=== PATIENT | female | born 1990 | race African-American/Black ===

== ENCOUNTER 2020-01-22 03:55 | Emergency (ER) | payer SELFPAY ==
[~2020-01-22] VITALS: Ht 154.9 cm; Wt 75.6 kg
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
[2020-01-22 05:00] LABS: BACTERIA,URINE 0 /HPF (0-FEW); BILIRUBIN,URINE NEG (NEG); CLARITY,URINE CLEAR; COLOR,URINE YELLOW; GLUCOSE,URINE NEG (NEG); NITRITE,URINE NEG (NEG); RBC,URINE 0 /HPF (0-2); SQUAMOUS EPITHELIAL CELL,UR MANY /LPF; UROBILINOGEN,URINE 0.2 mg/dL (0.2 mg/dL); WBC,URINE OCC /HPF (0-4)
[2020-01-22] MEDS ORDERED: oxyCODONE/APAP 5/325 1 TAB TABLET PO ONE (05:00)
[2020-01-22] MEDS ORDERED: DIPHTH,PERTUSS(ACELL),TET TOX 0.5 ML DISP.SYRIN. VAX IM ONE (05:00)
--- NOTE | 2020-01-22 06:03 | RAD ---
CT HEAD AND CERVICAL SPINE WO, CT PELVIS WO CONTRAST, CT MAXILLOFACIAL WO CONTRAST, CT LUMBAR SPINE WO CONTRAST dated 01/22/2020 4:11 AM Indication: Head and neck, low back, pain injury Comparison: None Technique: Contiguous axial imaging of the head performed from skull base to vertex. No contrast administered. In addition, axial imaging of the cervical spine, lumbar spine and pelvis performed with thin cut coronal and sagittal reconstructions. One or more of the following individualized dose reduction techniques were utilized for this examination: 1. Automated exposure control 2. Adjustment of the mA and/or kV according to patient size 3. Use of iterative reconstruction technique Findings head: Ventricles and sulci are within normal limits for age. No midline shift or mass effect. Brain parenchyma is of normal attenuation. No hemorrhage or extra axial collection. Posterior fossa and brainstem unremarkable. Mild mucosal thickening of the bilateral ethmoid and maxillary sinuses and left sphenoid sinus. Mastoid air cells are clear. No apparent calvarial abnormality. IMPRESSION HEAD: 1. No evidence of acute intracranial hemorrhage or mass. 2. Mild sinus disease. Findings maxillofacial: Facial bones are intact. Orbital lyons and maxillary lyons are intact. No displaced fracture. Zygomatic arches and mandible are intact. Nasal bones are intact. Mild thickening of the bilateral ethmoid air cells and bilateral1 maxillary sinus and left sphenoid sinus. The mastoid air cells are clear. No apparent calvarial abnormality. Borderline enlarged bilateral cervical chain lymph nodes, nonspecific. No additional soft tissue abnormality. IMPRESSION MAXILLOFACIAL: 1. No evidence of displaced facial fracture. 2. Mild sinus disease. Findings cervical spine: Straightening of the normal cervical lordosis, otherwise sagittal alignment is anatomic to the T1 level. No prevertebral soft tissue swelling. Vertebral body heights are maintained. Posterior elements are intact. No evidence of fracture. There is a prominent anterior osteophyte at C5-C6. Minimal multilevel uncovertebral hypertrophy. No focal disc herniation. The bony canal and foramen are adequate. Visualized soft tissue structures unremarkable. There are a few borderline enlarged bilateral cervical chain lymph nodes. Thyroid gland is unremarkable. Limited images of lung apices are clear. IMPRESSION CERVICAL SPINE: 1. No evidence of fracture or malalignment. 2. Mild spondylosis. Findings lumbar spine: Sagittal alignment is anatomic. Vertebral body heights are maintained. Posterior elements are intact. No evidence of fracture. Minimal endplate hypertrophic changes of the lower lumbar levels. There is also mild hypertrophic change of the lower lumbar apophyseal joints. No focal disc herniation. The bony canal and foramen are adequate. The peritoneum show no significant abnormality. IMPRESSION LUMBAR SPINE: No evidence of fracture or malalignment. Findings pelvis: Bony alignment is anatomic. The pelvic ring is intact. No displaced fracture. Bilateral femoral neck are intact. Mild degenerative change of the pubic symphysis. No periostitis or bone destruction. Visualized soft tissue structures are unremarkable. Bladder is nondistended. Uterus and adnexa are unremarkable. No free fluid or lymphadenopathy. There are borderline enlarged bilateral inguinal lymph nodes. IMPRESSION PELVIS: No acute bony or soft tissue abnormality. Electronically signed by: Fred Maria MD (01/22/2020 6:00 AM) [id number]
[2020-01-22 06:15] VITALS: BP 124/63
[2020-01-22 06:15] LABS: BARBITURATES NEG (NEG); BENZODIAZEPINES NEG (NEG); CANNABINOIDS POS (NEG); COCAINE NEG (NEG); METHADONE NEG (NEG); OPIATES NEG (NEG); PHENCYCLIDINE NEG (NEG)
[2020-01-22 06:20] LABS: AMPHETAMINE/METHAMPHETAMINE NEG (NEG)
== END 2020-01-22 06:25 | disposition home or self-care (01) ==
LOC: ER 03:55
DX: S00.83XA Contusion of other part of head, initial encounter (principal); M54.5 Low back pain; M25.551 Pain in right hip; M25.552 Pain in left hip; Y08.89XA Assault by other specified means, initial encounter; Y93.89 Activity, other specified; Y92.89 Other specified places as the place of occurrence of the external cause; Y99.8 Other external cause status
CPT/HCPCS: 36415; 70450; 70486; 72125; 72131; 72192; 80307; 81001; 81025; 90471; 90715; 99285-25